=== PATIENT | male | born 1970 | race Caucasian/White ===

== ENCOUNTER 2017-03-19 05:07 | Emergency (ER) | payer OTHER ==
[~2017-03-19 05:07] MED LIST: ASPIRIN81 MG PO; LEVAQUIN PO; METOPROLOL TART25 MG PO; NO MEDICATIONS
== END 2017-03-19 08:59 | disposition expired ==
LOC: CED 05:11 → CFTX 05:52
DX: I46.9 Cardiac arrest, cause unspecified (principal); F17.210 Nicotine dependence, cigarettes, uncomplicated
CPT/HCPCS: 31500; 92950; 99285; J0171